=== PATIENT | female | born 1965 | race Hispanic/Latino ===

== ENCOUNTER → 2021-09-23 | Outpatient (CLI) | payer OTHER ==
[~2021-09-23] MED LIST: AEC81 PO; ATOR20TA65 PO; ATOR40TA69 PO; BUPR-317 PO; BUPR-49 PO; CYAN-52 PO; FURO20TA4 PO; INSU100I21 SQ; INSU100I32 SQ; METO25 PO; OMEP40CA21 PO; POTA10CA44 PO; SEMA3TAB4 PO; VENL225T3 PO; VENL75CA97 PO
== END | disposition home or self-care (01) ==
LOC: RAH 12:04
PROVIDERS: ATTEND Internal Medicine
DX: Z12.31 Encounter for screening mammogram for malignant neoplasm of breast (principal)
CPT/HCPCS: 77067

== ENCOUNTER 2022-05-29 01:39 | Emergency (ER) | payer BC ==
[~2022-05-29] VITALS: Ht 162.6 cm; Wt 94.5 kg
[~2022-05-29 01:39] MED LIST changes: +ACET-66 PO; -INSU100I21 SQ; +INSU100I22 SQ; -POTA10CA44 PO; +POTA10CA45 PO
[2022-05-29 02:01] LABS: BASOPHILS % (AUTO) 0.6 % (0.0-5.0); EOSINOPHILS % (AUTO) 1.1 % (0.0-8.0); HEMATOCRIT 48.2 % (36-48); LYMPHOCYTES % (AUTO) 30.6 % (21.0-51.0); MEAN CORPUSCULAR HEMOGLOBIN 28.1 pg (27.0-33.0); MEAN CORPUSCULAR HGB CONC 32.4 g/dL (32.0-36.0); MEAN CORPUSCULAR VOLUME 86.8 fL (79-99); MONOCYTES % (AUTO) 8.9 % (3.0-13.0); NEUTROPHILS % (AUTO) 58.6 % (40.0-77.0); PLATELET COUNT (AUTO) 328 K/uL (130-400); RED BLOOD CELL COUNT(AUTO) 5.55 MIL/uL (4.00-5.50); RED CELL DISTRIBUTION WIDTH 14.9 % (11.0-15.5); WHITE BLOOD COUNT (AUTO) 10.5 K/uL (4.8-10.8)
[2022-05-29 02:14] LABS: INR 0.93 (0.85-1.15); PROTHROMBIN TIME 9.8 SEC (9.6-11.6)
[2022-05-29 02:15] LABS: PARTIAL THROMBOPLASTIN TIME 26.8 SEC (26.3-35.5)
[2022-05-29 02:28] LABS: ALBUMIN 3.9 g/dL (3.5-5.0); CREATININE 1.1 mg/dL (0.5-1.5); POTASSIUM 4.2 mmol/L (3.5-5.1); TOTAL PROTEIN, SERUM 7.8 g/dL (6.0-8.3)
[2022-05-29] MEDS ORDERED: HYDROCODONE/ACETAMINOPHEN 5/325 MG TAB PO ONE (03:00)
[2022-05-29 04:38] VITALS: BP 144/75
== END 2022-05-29 05:38 | disposition home or self-care (01) ==
LOC: EDH 01:39
DX: M94.0 Chondrocostal junction syndrome [Tietze] (principal); F41.9 Anxiety disorder, unspecified; I10 Essential (primary) hypertension; E11.65 Type 2 diabetes mellitus with hyperglycemia; I25.2 Old myocardial infarction; F17.200 Nicotine dependence, unspecified, uncomplicated; Z79.82 Long term (current) use of aspirin; Z79.899 Other long term (current) drug therapy; Z95.1 Presence of aortocoronary bypass graft
CPT/HCPCS: 36415; 71045; 80053; 83690; 84484; 85025; 85610; 85730; 93005

== ENCOUNTER 2023-07-21 22:13 | Emergency (ER) | payer BC ==
[~2023-07-21] VITALS: Ht 162.6 cm; Wt 90.7 kg
[~2023-07-21 22:13] MED LIST changes: -BUPR-317 PO; +BUPR-561 PO; -POTA10CA45 PO; +POTA10CA95 PO
[2023-07-21 22:46] LABS: BASOPHILS # (AUTO) 0.05 K/uL (0.00-0.20); BASOPHILS % (AUTO) 0.5 % (0.0-5.0); EOSINOPHILS % (AUTO) 0.9 % (0.0-8.0); HEMATOCRIT 39.9 % (36-48); IMMATURE GRANULOCYTE ABSOLUTE 0.03 K/uL (0-1); LYMPHOCYTES % (AUTO) 27.9 % (21.0-51.0); MEAN CORPUSCULAR HEMOGLOBIN 29.8 pg (27.0-33.0); MEAN CORPUSCULAR HGB CONC 33.8 g/dL (32.0-36.0); MEAN CORPUSCULAR VOLUME 88.1 fL (79-99); MONOCYTES # (AUTO) 0.9 K/uL (0.1-1.0); MONOCYTES % (AUTO) 8.3 % (3.0-13.0); NEUTROPHILS # (AUTO) 6.6 K/uL (1.8-7.7); NEUTROPHILS % (AUTO) 62.1 % (40.0-77.0); PLATELET COUNT (AUTO) 320 K/uL (130-400); RED BLOOD CELL COUNT(AUTO) 4.53 MIL/uL (4.00-5.50); RED CELL DISTRIBUTION WIDTH 13.3 % (11.0-15.5); WHITE BLOOD COUNT (AUTO) 10.7 K/uL (4.8-10.8)
[2023-07-21 22:55] LABS: CREATININE 0.9 mg/dL (0.5-1.0); POTASSIUM 4.1 mmol/L (3.5-5.1)
[2023-07-21] MEDS: PANTOPRAZOLE 40 MG/VIAL IVP ONE (23:38)
[2023-07-22 00:30] VITALS: BP 126/80; PULSE 66; RESP 20; O2SAT 96
[2023-07-22 00:40] LABS: APPEARANCE,URINE CLEAR (CLEAR); BILIRUBIN,URINE NEGATIVE (NEGATIVE); COLOR,URINE COLORLESS (YELLOW); GLUCOSE, URINE (UA) NEGATIVE (NEGATIVE); KETONES,URINE NEGATIVE (NEGATIVE); LEUKOCYTE ESTERASE ,URINE 250 Leu/uL (NEGATIVE); NITRATE,URINE NEGATIVE (NEGATIVE); OCCULT BLOOD,URINE NEGATIVE (NEGATIVE); PROTEIN,URINE NEGATIVE (NEGATIVE); UROBILINOGEN,URINE 0.2 mg/dL (0.2-1.0)
[2023-07-22] MEDS: MAG/ALUM/SIMETH 30 ML UDCUP ONE (00:40)
[2023-07-22] MEDS: LIDOCAINE HCL 2% VISCOUS 15 ML UDCUP ONE (00:40)
[2023-07-22] MEDS: DICYCLOMINE HCL 10 MG/5 ML ML PO ONE (00:40)
[2023-07-22 00:44] LABS: ADD UA MICROSCOPIC YES
[2023-07-22 00:46] LABS: BACTERIA,URINE FEW /HPF (None Seen); MUCUS,URINE RARE LPF (None Seen); SQUAMOUS EPITHELIAL CELL,UR RARE /HPF (0-2)
[2023-07-22] MEDS ORDERED: PANT40TA55 PO (00:56)
== END 2023-07-22 01:04 ==
LOC: EDH 22:13
DX: K21.9 Gastro-esophageal reflux disease without esophagitis (principal); F41.9 Anxiety disorder, unspecified; F32.A Depression, unspecified; E11.9 Type 2 diabetes mellitus without complications; I10 Essential (primary) hypertension; F17.200 Nicotine dependence, unspecified, uncomplicated; Z79.82 Long term (current) use of aspirin; Z79.899 Other long term (current) drug therapy; Z95.1 Presence of aortocoronary bypass graft
CPT/HCPCS: 99284; 96374; 71045; 84484 ×2; 80048; 85025; 85730; 87088; 81001; 36415; 93005; C9113

== ENCOUNTER 2023-11-25 19:00 | Emergency (ER) | payer BC ==
[~2023-11-25] VITALS: Ht 167.6 cm; Wt 92.5 kg
[~2023-11-25 19:00] MED LIST changes: +PANT40TA55 PO
[2023-11-25 19:08] VITALS: TEMP 97.9
[2023-11-25 19:42] LABS: BASOPHILS # (AUTO) 0.04 K/uL (0.00-0.20); BASOPHILS % (AUTO) 0.4 % (0.0-5.0); EOSINOPHILS # (AUTO) 0.12 K/uL (0.00-0.70); EOSINOPHILS % (AUTO) 1.2 % (0.0-8.0); HEMATOCRIT 39.8 % (36-48); IMMATURE GRANULOCYTE ABSOLUTE 0.02 K/uL (0-1); LYMPHOCYTES # (AUTO) 2.2 K/uL (1.0-4.8); LYMPHOCYTES % (AUTO) 22.8 % (21.0-51.0); MEAN CORPUSCULAR HEMOGLOBIN 29.8 pg (27.0-33.0); MEAN CORPUSCULAR HGB CONC 33.4 g/dL (32.0-36.0); MONOCYTES # (AUTO) 0.6 K/uL (0.1-1.0); MONOCYTES % (AUTO) 6.6 % (3.0-13.0); NEUTROPHILS # (AUTO) 6.7 K/uL (1.8-7.7); NEUTROPHILS % (AUTO) 68.8 % (40.0-77.0); PLATELET COUNT (AUTO) 318 K/uL (130-400); RED BLOOD CELL COUNT(AUTO) 4.47 MIL/uL (4.00-5.50); RED CELL DISTRIBUTION WIDTH 13.4 % (11.0-15.5); WHITE BLOOD COUNT (AUTO) 9.7 K/uL (4.8-10.8)
[2023-11-25 19:56] LABS: CREATININE 1.1 mg/dL (0.5-1.0)
[2023-11-25 20:51] VITALS: BP 107/67; PULSE 80; RESP 18; O2SAT 97
[2023-11-25] MEDS: ketOROlac 15MG/ML VIAL (15MG/ML) IV ONE (21:02)
[2023-11-25] MEDS ORDERED: ACET-2079 PO (21:03)
== END 2023-11-25 21:12 | disposition home or self-care (01) ==
LOC: EDH 19:00
DX: R22.2 Localized swelling, mass and lump, trunk (principal); F41.9 Anxiety disorder, unspecified; E11.9 Type 2 diabetes mellitus without complications; F17.200 Nicotine dependence, unspecified, uncomplicated; F32.A Depression, unspecified; I10 Essential (primary) hypertension; K21.9 Gastro-esophageal reflux disease without esophagitis; Z79.82 Long term (current) use of aspirin; Z79.899 Other long term (current) drug therapy; Z95.1 Presence of aortocoronary bypass graft
CPT/HCPCS: 99284; 96374; 80048; 85025; 36415; 76604; J1885

== ENCOUNTER 2024-06-09 18:09 | Emergency (ER) | payer OTHER, BC ==
[~2024-06-09] VITALS: Ht 162.6 cm; Wt 90.7 kg
[~2024-06-09 18:09] MED LIST changes: +ACET-2079 PO; -BUPR-561 PO; +BUPR-721 PO
--- NOTE | 2024-06-09 18:32 | EKG ---
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
[2024-06-09] MEDS: FAMOTIDINE 20MG VIAL IV ONE (18:37)
[2024-06-09] MEDS: 0.9%NACL 1000ML 1,000 ML IV SCH (18:37)
[2024-06-09] MEDS: ondanSETRON 4MG INJ IVP ONE (18:37)
[2024-06-09 18:38] LABS: BASOPHILS # (AUTO) 0.02 K/uL (0.00-0.20); BASOPHILS % (AUTO) 0.1 % (0.0-5.0); EOSINOPHILS # (AUTO) 0.02 K/uL (0.00-0.70); EOSINOPHILS % (AUTO) 0.1 % (0.0-8.0); HEMATOCRIT 49.8 % (36-48); IMMATURE GRANULOCYTE ABSOLUTE 0.05 K/uL (0-1); LYMPHOCYTES # (AUTO) 1.4 K/uL (1.0-4.8); LYMPHOCYTES % (AUTO) 9.3 % (21.0-51.0); MEAN CORPUSCULAR HEMOGLOBIN 29.8 pg (27.0-33.0); MEAN CORPUSCULAR HGB CONC 32.3 g/dL (32.0-36.0); MEAN CORPUSCULAR VOLUME 92.1 fL (79-99); MONOCYTES % (AUTO) 6.9 % (3.0-13.0); NEUTROPHILS # (AUTO) 12.5 K/uL (1.8-7.7); NEUTROPHILS % (AUTO) 83.3 % (40.0-77.0); PLATELET COUNT (AUTO) 315 K/uL (130-400); RED BLOOD CELL COUNT(AUTO) 5.41 MIL/uL (4.00-5.50); RED CELL DISTRIBUTION WIDTH 13.3 % (11.0-15.5)
[2024-06-09 18:49] LABS: CREATININE 1.1 mg/dL (0.5-1.0); POTASSIUM 4.1 mmol/L (3.5-5.1)
[2024-06-09 18:54] LABS: ALBUMIN 4.3 g/dL (3.5-5.0); BILIRUBIN,DIRECT 0.2 mg/dL (0.0-0.3); TOTAL PROTEIN, SERUM 8.5 g/dL (6.0-8.3)
[2024-06-09] MEDS ORDERED: IOHEXOL-350 75 ML VIAL IV ONE (19:51)
--- NOTE | 2024-06-09 20:22 | HMCIMG ---
CT ABDOMEN/PELVIS W/CONTRAST HISTORY: Epigastric pain COMPARISON: 10/31/2012 TECHNIQUE: Multiple sequential axial images of the abdomen and pelvis were obtained from the dome of the diaphragm through symphysis pubis. Patient was given 75 cc of Omnipaque through intravenous route. Oral contrast was not given. FINDINGS: No pleural effusion is seen bilaterally. Mild bilateral pulmonary infiltrates are seen. Degenerative changes of the thoracolumbar spine are present. The heart is not enlarged. Coronary arterial calcifications are seen. Post sternotomy changes are seen. Liver is enlarged measuring 26 cm. The liver, spleen, adrenal glands and pancreas are unremarkable. There is no evidence of hydronephrosis bilaterally. No evidence of renal stone is seen. Fecal material is seen in the colon. There are normal size retroperitoneal and mesenteric lymph nodes. No ascites is seen. Mild small bowel dilatation is seen with fluid-filled may be related to enterocolitis. There is mild diverticulosis. Appendix is not well seen within the evaluation. Pelvic sidewalls are symmetric bilaterally. Bladder is well distended without wall thickening. IMPRESSION: 1. Mild small bowel dilatation is seen with fluid-filled may be related to enterocolitis. There is mild diverticulosis. Appendix is not well seen within the evaluation. CT was performed with one or more following dose reduction techniques: automated exposure control, adjustment of the mA and kv according to patient's size, or use of a iterative reconstruction technique.
--- NOTE | 2024-06-09 21:08 | ERN ---
General Chief Complaint: Nausea,Vomiting,Diarrhea Stated Complaint: VOMITING Time Seen by MD: 18:24 Time Seen by Midlevel: 18:24 Source: patient History of Present Illness Initial Comments The patient is a 58-year-old female with a past medical history of type 2 diabetes presenting to the emergency department for evaluation of midepigastric abdominal pain and associated nausea and vomiting. Patient states she has been previously taking Ozempic however she had not taken it for two months. This week she restarted her Ozempic but was started on the previous dose she was on which was 2 mg. She believes it may have been the high dose causing your symptoms. Allergies: Coded Allergies: No Known Drug Allergies (Unverified Allergy, Unknown, 09/19/20) Home Meds Active Scripts Acetaminophen with Codeine (Acetaminophen-Cod #3 Tablet) 300 Mg-30 Mg Tablet, 1 TAB PO BID for 5 Days, #10 TAB Prov:SHASTA LITTLE 11/25/23 Pantoprazole Sodium (Protonix) 40 Mg Ectab, 40 MG PO DAILY for 30 Days, #30 TAB.EC Prov:ANDI JACOBS MD 07/22/23 Acetaminophen (Tylenol) 500 Mg Tab, 500 MG PO Q4PRN PRN for PAIN, #15 TAB Prov:ONUR VICENTE 03/14/22 Potassium Chloride (Potassium Chloride) 10 Meq Capsule.er, 10 MEQ PO DAILY, #7 CAP 0 Refills Prov:KIARA DE LEON HEAD OF DESIGN 09/26/20 Furosemide (Furosemide) 20 Mg Tablet, 20 MG PO DAILY, #7 TAB 0 Refills Prov:KIARA DE LEONP 09/26/20 Metoprolol Tartrate (Lopressor) 25 Mg Tab, 25 MG PO BID, #60 TAB 3 Refills Prov:KIARA DE LEONP 09/26/20 Atorvastatin Calcium (LIPITOR) 40 Mg Tablet, 40 MG PO HS, #90 TAB 3 Refills Prov:KIARA DE LEONP 09/26/20 Aspirin (ASPIRIN 81 MG ECTAB) 81 Mg Ectab, 81 MG PO DAILY, #90 TAB.EC 3 Refills Prov:KIARA DE LEONP 09/26/20 Reported Medications Insulin Aspart (Niacinamide) (Fiasp 100 Unit/ml Flextouch) 100 Unit/1 Ml Insuln.pen, SQ AD, SYRINGE 02/12/21 Cyanocobalamin (Vitamin B-12) (Vitamin B-12) 1,000 Mcg Tablet, 1000 MCG PO DAILY, TAB 02/12/21 Venlafaxine HCl (Venlafaxine HCl ER) 75 Mg Cap.er.24h, 75 MG PO DAILY, CAPSULE.DR 02/12/21 Atorvastatin Calcium (Atorvastatin Calcium) 20 Mg Tablet, 20 MG PO DAILY, TAB 02/12/21 Omeprazole (Omeprazole) 40 Mg Capsule.dr, 40 MG PO DAILY, CAP 02/12/21 Bupropion HCl (Bupropion Xl) 150 Mg Tab.er.24h, 150 MG PO DAILY, TAB 02/12/21 Semaglutide (Rybelsus) 3 Mg Tablet, 1 TAB PO ACBKFST 09/19/20 Omeprazole (Omeprazole) 40 Mg Capsule.dr, 1 CAP PO QDP 09/19/20 Insulin Detemir (Levemir Flextouch) 100 Unit/1 Ml Insuln.pen, 55 UNITS SQ HS 09/19/20 Bupropion HCl (Bupropion Xl) 300 Mg Tab.er.24h, 1 TAB PO QDP 09/19/20 Venlafaxine HCl (Venlafaxine HCl ER) 225 Mg Tab.er.24, 1 TAB PO QDP 09/19/20 Past Medical History Past Medical History: Diabetes-Type II, Hypertension, [place] Past Surgical History: CABG Surgical History Other: HEART CATH, RT HAND Social History Social History: Smokers ROS Dictation CONSTITUTIONAL: Negative except for HPI HEAD/FACE: Negative except for HPI EENT: Negative except for HPI RESPIRATORY: Negative except for HPI GASTROINTESTINAL/ABDOMINAL: Negative except for HPI GENITOURINARY: Negative except for HPI MUSCULOSKELETAL: Negative except for HPI INTEGUMENTARY: Negative except for HPI NEUROLOGICAL/PSYCH: Negative except for HPI HEMATOLOGIC/LYMPHATIC: Negative except for HPI All Systems Negative, Except as noted above. 13 point review of systems assessed and all negative except for above. Physical Exam Physical Exam Dictation Vital Signs reviewed General Appearance: Alert, oriented x 3, no acute distress, well developed, nourished. Head and Face: non-traumatic. Eyes: PERRL, pink conjunctivas, eyelid no trauma, anterior chamber with arcus senilis. Ears: Pinnas intact and no signs of trauma or erythema ear canals clear and no discharge TM no erythema Nose: No discharge, no bleeding. Oropharynx: Mouth normal, tongue pink, pharynx clear,no erythema, tonsils no exudates, no abscesses noted, mucous membrane moist Neck: Supple, non-tender, no thyromegaly, no masses, no JVD, no bruits Breast:Deferred Chest:No tenderness, no crepitus, no paradoxical movement, no retractions Lungs:Clear, well-ventilated, symmetric, no rales, no wheezing, no rhonchi, no stridor, good breath sounds bilaterally Heart: Regular rate, regular rhythm, no murmur, no gallops Vascular: no peripheral edema, Abdomen: Soft, positive bowel sounds, nondistended, no guarding, nontender, no rebound, no masses no hepatomegaly, no splenomegaly, no Oneal's sign, no hernias. Rectal: Deferred Genital: Deferred Neurological: Normal speech, motor function intact, sensory function intact Musculoskeletal: Neck nontender, full range of motion, back nontender, full range of motion, Extremities: nontender, full range of motion Skin: Color pink, dry, no turgor, no rash, no lacerations, no abrasions, no contusions. Lymphatic: Deferred Results Laboratory and Microbiology Lab and Micro Result Laboratory Tests Test 06/09/24 18:27 White Blood Count 15.0 K/uL (4.8-10.8) H Red Blood Count 5.41 MIL/uL (4.00-5.50) Hemoglobin 16.1 g/dL (12.0-16.0) H Hematocrit 49.8 % (36-48) H Mean Corpuscular Volume 92.1 fL (79-99) Mean Corpuscular Hemoglobin 29.8 pg (27.0-33.0) Mean Corpuscular Hemoglobin Concent 32.3 g/dL (32.0-36.0) Red Cell Distribution Width 13.3 % (11.0-15.5) Platelet Count 315 K/uL (130-400) Mean Platelet Volume 10.5 fL (7.5-10.5) Immature Granulocyte % (Auto) 0.3 % (0-1) Neutrophils (%) (Auto) 83.3 % (40.0-77.0) H Lymphocytes (%) (Auto) 9.3 % (21.0-51.0) L Monocytes (%) (Auto) 6.9 % (3.0-13.0) Eosinophils (%) (Auto) 0.1 % (0.0-8.0) Basophils (%) (Auto) 0.1 % (0.0-5.0) Neutrophils # (Auto) 12.5 K/uL (1.8-7.7) H Lymphocytes # (Auto) 1.4 K/uL (1.0-4.8) Monocytes # (Auto) 1.0 K/uL (0.1-1.0) Eosinophils # (Auto) 0.02 K/uL (0.00-0.70) Basophils # (Auto) 0.02 K/uL (0.00-0.20) Absolute Immature Granulocyte (auto 0.05 K/uL (0-1) Nucleated Red Blood Cells 0.0 % (0.0-0.19) White Cell Morphology Comment See comments Sodium Level 139 mmol/L (136-145) Potassium Level 4.1 mmol/L (3.5-5.1) Chloride Level 98 mmol/L (101-111) L Carbon Dioxide Level 33 mmol/L (21-32) H Blood Urea Nitrogen 21 mg/dL (7-18) H Creatinine 1.1 mg/dL (0.5-1.0) H Glomerular Filtration Rate Calc 59 mL/min (>90) Random Glucose 184 mg/dL (70-105) H Total Calcium 9.7 mg/dL (8.5-10.1) Total Bilirubin 1.0 mg/dL (0.2-1.0) Direct Bilirubin 0.2 mg/dL (0.0-0.3) Aspartate Amino Transf (AST/SGOT) 25 U/L (10-37) Alanine Aminotransferase (ALT/SGPT) 40 U/L (12-78) Alkaline Phosphatase 84 U/L (50-136) Total Creatine Kinase 106 U/L (21-232) # Troponin I High Sensitivity 7.3 ng/L (4-50) Total Protein 8.5 g/dL (6.0-8.3) H Albumin 4.3 g/dL (3.5-5.0) Lipase 26 U/L (16-77) Labs Reviewed?: Yes MDM MDM: Differential diagnosis: There are no social concerns with this patient. Prescription drug management Prescriptions will include: Medical management and examination interpretation discussions were had by me with other qualified healthcare professionals as indicated for the patient's care. ED Course Orders Procedure Category Date Status Time Initiate Chest Pain MANNY 06/09/24 In Process Procotol 18:18 12 Lead Ekg Tracing- EKG 06/09/24 Complete Technical 18:18 Cardiac Panel LAB 06/09/24 Complete 18:18 Cbc With Differential LAB 06/09/24 Complete 18:28 Basic Metabolic Panel LAB 06/09/24 Complete 18:28 Lipase LAB 06/09/24 Complete 18:28 Hepatic Function Panel LAB 06/09/24 Complete 18:28 Ondansetron 4mg Inj PHA 06/09/24 Complete (Zofran 4mg Inj) 18:30 Famotidine 20mg Vial PHA 06/09/24 Complete (Pepcid 20mg Vial) 18:30 0.9%Nacl 1000ml (Ns PHA 06/09/24 In Process 1000ml) 18:30 Ct Abdomen/Pelvis CT 06/09/24 Resulted W/Contrast 19:14 Iohexol (Omnipaque) PHA 06/09/24 Complete 19:51 Current Medications Medications (Trade) Dose Ordered Sig/Deepika Route PRN Reason Start Time Stop Time Status Last Admin Dose Admin Famotidine (Pepcid 20mg Vial) 20 mg ONCE ONCE IV 06/09/24 18:30 06/09/24 18:31 DC 06/09/24 18:37 Iohexol (Omnipaque) 75 ml STK-MED ONCE IV 06/09/24 19:51 06/09/24 19:51 DC Ondansetron HCl (zoFRAN 4MG INJ) 4 mg ONCE ONCE IVP 06/09/24 18:30 06/09/24 18:31 DC 06/09/24 18:37 Sodium Chloride 1,000 ml @ 0 mls/hr Q0M IV 06/09/24 18:30 07/09/24 18:29 06/09/24 18:37 Vital Signs Date Time Temp Pulse Resp B/P (MAP) Pulse Ox O2 Delivery O2 Flow Rate FiO2 06/09/24 20:28 98.1 80 18 137/79 98 Room Air* 0 21 06/09/24 18:31 98.8 84 20 144/71 98 Room Air* 0 21 06/09/24 18:13 98.2 92 18 167/101 96 Room Air 0 DX & DISP Disposition: Discharge Departure Impression: Primary Impression: Medication side effect Additional Impression: Enterocolitis Condition: Stable Additional Instructions: Your symptoms are most likely related to the high dose of Ozempic you administered. Your blood work shows an elevation in your white blood cell count. Your CT scan of the abdomen/pelvis reveals enterocolitis. Have given you a prescription for Zofran and Pepcid which should help improve your symptoms over the next couple of days. If you develop any fever, chills, or any other symptom please report to the ER for further evaluation Referrals: STEF JACKSON MD (PCP) Time of Disposition: 21:06 I have reviewed the case, and I agree with, Diagnosis and Plan I performed the substantive portion of the visit. I have reviewed and personally made and approve the management plan that is documented in the note by myself or the [facility]. I acknowledge for responsibility for the patient's management plan. SHASTA LITTLE Jun 09, 2024 21:08
[2024-06-09 21:23] VITALS: BP 131/72; PULSE 78; RESP 20; TEMP 98; O2SAT 98
== END 2024-06-09 21:23 | disposition home or self-care (01) ==
LOC: EDH 18:09
DX: K52.1 Toxic gastroenteritis and colitis (principal); T50.995A Adverse effect of other drugs, medicaments and biological substances, initial encounter; Y92.89 Other specified places as the place of occurrence of the external cause; E11.9 Type 2 diabetes mellitus without complications; F17.200 Nicotine dependence, unspecified, uncomplicated; I10 Essential (primary) hypertension; Z79.82 Long term (current) use of aspirin; Z79.85 Long-term (current) use of injectable non-insulin antidiabetic drugs; Z79.899 Other long term (current) drug therapy; Z95.1 Presence of aortocoronary bypass graft
CPT/HCPCS: 99285; 74177; 96374; 96375; 82550; 80076; 84484; 80048; 83690; 85025; 36415; 93005; J3490; J7030; J2405; Q9967

== ENCOUNTER 2024-11-15 16:12 | Emergency (ER) | payer OTHER, MEDICARE ==
[~2024-11-15] VITALS: Ht 162.6 cm; Wt 93.0 kg
--- NOTE | 2024-11-15 16:24 | ERN ---
ED Note History of Present Illness Stated Complaint: LAC LT THUMB Chief Complaint: Laceration/Avulsion Time Seen by MD: 16:15 Dictation: PATIENT IS A 59-YEAR-OLD FEMALE HERE WITH A SMALL LACERATION TO THE DISTAL LEFT THUMB ONSET1 HOUR PRIOR TO ARRIVAL. SHE STATES SHE IS ON ELIQUIS AND WAS COOKING AND CUTTING SOME VEGETABLES WHEN SHE CUT HER LEFT THUMB WITH A KNIFE. SHE STATES SHE HAS HAD A DIFFICULT TIME GETTING IT TO STOP BLEEDING. HER LAST TETANUS SHOT IS UNKNOWN. NEUROVASCULAR CMS INTACT TO THUMB. ON EXAM THERE HAS CAPILLARY BLEEDING ONLY SUBTLE. IN HIS CONTINUING Allergies: Coded Allergies: No Known Drug Allergies (Unverified Allergy, Unknown, 09/19/20) Home Meds Active Scripts Acetaminophen with Codeine (Acetaminophen-Cod #3 Tablet) 300 Mg-30 Mg Tablet, 1 TAB PO BID for 5 Days, #10 TAB Prov:SHASTA LITTLE 11/25/23 Pantoprazole Sodium (Protonix) 40 Mg Ectab, 40 MG PO DAILY for 30 Days, #30 TAB.EC Prov:ANDI JACOBS MD 07/22/23 Acetaminophen (Tylenol) 500 Mg Tab, 500 MG PO Q4PRN PRN for PAIN, #15 TAB Prov:ONUR VICENTE [facility] 03/14/22 Potassium Chloride (Potassium Chloride) 10 Meq Capsule.er, 10 MEQ PO DAILY, #7 CAP 0 Refills Prov:KIARA DE LEON OYSTER SHUCKER 09/26/20 Furosemide (Furosemide) 20 Mg Tablet, 20 MG PO DAILY, #7 TAB 0 Refills Prov:KIARA DE LEON OYSTER SHUCKER 09/26/20 Metoprolol Tartrate (Lopressor) 25 Mg Tab, 25 MG PO BID, #60 TAB 3 Refills Prov:KIARA DE LEON OYSTER SHUCKER 09/26/20 Atorvastatin Calcium (LIPITOR) 40 Mg Tablet, 40 MG PO HS, #90 TAB 3 Refills Prov:KIARA DE LEONP 09/26/20 Aspirin (ASPIRIN 81 MG ECTAB) 81 Mg Ectab, 81 MG PO DAILY, #90 TAB.EC 3 Refills Prov:KIARA DE LEONP 09/26/20 Reported Medications Insulin Aspart (Niacinamide) (Fiasp 100 Unit/ml Flextouch) 100 Unit/1 Ml Insuln.pen, SQ AD, SYRINGE 02/12/21 Cyanocobalamin (Vitamin B-12) (Vitamin B-12) 1,000 Mcg Tablet, 1000 MCG PO DAILY, TAB 02/12/21 Venlafaxine HCl (Venlafaxine HCl ER) 75 Mg Cap.er.24h, 75 MG PO DAILY, CAPSULE.DR 02/12/21 Atorvastatin Calcium (Atorvastatin Calcium) 20 Mg Tablet, 20 MG PO DAILY, TAB 02/12/21 Omeprazole (Omeprazole) 40 Mg Capsule.dr, 40 MG PO DAILY, CAP 02/12/21 Bupropion HCl (Bupropion Xl) 150 Mg Tab.er.24h, 150 MG PO DAILY, TAB 02/12/21 Semaglutide (Rybelsus) 3 Mg Tablet, 1 TAB PO ACBKFST 09/19/20 Omeprazole (Omeprazole) 40 Mg Capsule.dr, 1 CAP PO QDP 09/19/20 Insulin Detemir (Levemir Flextouch) 100 Unit/1 Ml Insuln.pen, 55 UNITS SQ HS 09/19/20 Bupropion HCl (Bupropion Xl) 300 Mg Tab.er.24h, 1 TAB PO QDP 09/19/20 Venlafaxine HCl (Venlafaxine HCl ER) 225 Mg Tab.er.24, 1 TAB PO QDP 09/19/20 Past Medical History Past Medical History: Diabetes-Type II, High Cholesterol, Hypertension, [place], Other Additional Past Medical Hx: PTSD Surgical History: CABG Surgical History Other: HEART CATH, RT HAND Social History: Smokers History: Not Applicable RN Note Reviewed/Agreed w/PFSH: Yes Review of System Dictation CONSTITUTIONAL: NEGATIVE EXCEPT FOR HPI HEAD/FACE: NEGATIVE EXCEPT FOR HPI EENT: NEGATIVE EXCEPT FOR HPI RESPIRATORY: NEGATIVE EXCEPT FOR HPI GASTROINTESTINAL/ABDOMINAL: NEGATIVE EXCEPT FOR HPI GENITOURINARY: NEGATIVE EXCEPT FOR HPI MUSCULOSKELETAL: NEGATIVE EXCEPT FOR HPI LACERATION DISTAL LEFT THUMB INTEGUMENTARY: NEGATIVE EXCEPT FOR HPI NEUROLOGICAL/PSYCH: NEGATIVE EXCEPT FOR HPI HEMATOLOGIC/LYMPHATIC: NEGATIVE EXCEPT FOR HPI ALL SYSTEMS NEGATIVE, EXCEPT NOTED ABOVE. 13 POINT REVIEW OF SYSTEMS ASSESSED AND ALL NEGATIVE EXCEPT FOR ABOVE. Initial Vital Sign VS Vital Signs Date Time Temp Pulse Resp B/P (MAP) Pulse Ox O2 Delivery O2 Flow Rate FiO2 11/15/24 16:14 98.6 78 18 118/73 98 Physical Exam Dictation VITAL SIGNS REVIEWED GENERAL APPEARANCE: ALERT, ORIENTED X 3, A MILD CUTE DISTRESS, WELL DEVELOPED, NOURISHED. HEAD AND FACE: NON-TRAUMATIC. EYES: PERRL, PINK CONJUNCTIVAS, EYELID NO TRAUMA, ANTERIOR CHAMBER WITH ARCUS SENILIS. EARS: PINNAS INTACT AND NO SIGNS OF TRAUMA OR ERYTHEMA EAR CANALS CLEAR AND NO DISCHARGE TM NO ERYTHEMA NOSE: NO DISCHARGE, NO BLEEDING. OROPHARYNX: MOUTH NORMAL, TONGUE PINK, PHARYNX CLEAR,NO ERYTHEMA, TONSILS NO EXUDATES, NO ABSCESSES NOTED, MUCOUS MEMBRANE MOIST NECK: SUPPLE, NON-TENDER, NO THYROMEGALY, NO MASSES, NO JVD, NO BRUITS BREAST:DEFERRED CHEST:NO TENDERNESS, NO CREPITUS, NO PARADOXICAL MOVEMENT, NO RETRACTIONS LUNGS:CLEAR, WELL-VENTILATED, SYMMETRIC, NO RALES, NO WHEEZING, NO RHONCHI, NO STRIDOR, GOOD BREATH SOUNDS BILATERALLY HEART: REGULAR RATE, REGULAR RHYTHM, NO MURMUR, NO GALLOPS VASCULAR: NO PERIPHERAL EDEMA, ABDOMEN: SOFT, POSITIVE BOWEL SOUNDS, NONDISTENDED, NO GUARDING, NONTENDER, NO REBOUND, NO MASSES NO HEPATOMEGALY, NO SPLENOMEGALY, NO THOMAS'S SIGN, NO HERNIAS. RECTAL: DEFERRED GENITAL: DEFERRED NEUROLOGICAL: NORMAL SPEECH, MOTOR FUNCTION INTACT, SENSORY FUNCTION INTACT MUSCULOSKELETAL: NECK NONTENDER, FULL RANGE OF MOTION, BACK NONTENDER, FULL RANGE OF MOTION, EXTREMITIES: SKIN AVULSION TO DISTAL LEFT THUMB. NO REPAIR POSSIBLE PATIENT WA S MADE AWARE. MINIMAL BLEEDING SKIN: COLOR PINK, UNREPAIRABLE SKIN LACERATION TO DISTAL LEFT THUMB. NAIL IS INTACT. LYMPHATIC: DEFERRED Results (Laboratory/Radiology) Labs Reviewed?: Yes ED Course ED Course Orders Procedure Category Date Status Time Lidocaine Hcl 1% 20ml PHA 11/15/24 Complete Vial (Lidocaine Hc 16:30 Acetaminophen 500mg PHA 11/15/24 Complete Tab (Tylenol 500mg T 16:30 Neomy PHA 11/15/24 Complete Sulf/Bacitra/Polymyxin 16:30 Tetanus,Diphtheria PHA 11/15/24 Complete Tox [Adult] (Diphther 16:30 Current Medications Medications (Trade) Dose Ordered Sig/Deepika Route PRN Reason Start Time Stop Time Status Last Admin Dose Admin Acetaminophen (TYLenol 500MG TAB) 1,000 mg ONCE ONCE PO 11/15/24 16:30 11/15/24 16:31 DC Lidocaine HCl (Lidocaine HCl 1% 20ml Vial) 10 ml ONCE ONCE INJ 9/26/25 16:30 11/15/24 16:31 DC Neomycin/ Polymyxin/ Bacitracin (Triple Antibiotic Ointment) 1 appl ONCE ONCE TP 11/15/24 16:30 11/15/24 16:31 DC Tetanus/ Diphtheria Toxoids Adsorbed (DiphthERIA-teTANUS TOXOID [ADULT]/ DECAVAC) 0.5 ml ONCE ONCE IM 11/15/24 16:30 11/15/24 16:31 DC Vital Signs Date Time Temp Pulse Resp B/P (MAP) Pulse Ox O2 Delivery O2 Flow Rate FiO2 11/15/24 16:14 98.6 78 18 118/73 98 1725/SPOKE WITH PATIENT AT LENGTH REGARDING CLINICAL FINDINGS AFTER WOUND WAS CLEANED. SKIN IS AVULSED AND THERE WAS NO REPAIR POSSIBLE WE WILL APPLY QUICK CLOT PRESSURE DRESSING, PATIENT IS A DIABETIC WE WILL INITIATE KEFLEX FOR PROPHYLAXIS PATIENT WAS INSTRUCTED TO LEAVE DRESSING ON UNTIL TOMORROW. Medical Decision Making [facility] 1725/MEDICAL DECISION-MAKING BASED ON TETANUS UPDATE AND WOUND EXAMINATION SKIN IS AVULSED TO DISTAL LEFT THUMB NO REPAIR POSSIBLE PATIENT WAS ADVICE. WE WILL APPLY PRESSURE DRESSING WITH QUICK CLOT PATIENT MADE AWARE TO DO NOT REMOVE DRESSING UNTIL THE NEXT DAY. KEFLEX WE WILL BE GIVEN DX & DISP Disposition: Discharge Departure Impression: Primary Impression: Avulsion of skin of left thumb Condition: Stable Scripts Ibuprofen (Ibuprofen 800 mg Tab) 800 Mg Tab 800 MG PO Q8H PRN for fever or pain, #30 TAB 0 Refills Prov: JAZ HARDY NP 11/15/24 Mupirocin (Bactroban 2% Oint) 2 % Oint 1 APPL TP TID for 5 Days, #15 GM 0 Refills apply to affected area(s) Prov: JAZ HARDY NP 11/15/24 Cephalexin (Cephalexin) 500 Mg Tablet 1 TAB PO TID for 10 Days, #30 TAB 0 Refills Prov: JAZ HARDY NP 11/15/24 Additional Instructions: FOLLOW-UP WITH PRIMARY CARE PROVIDER IN 1 TO 2 DAYS. TAKE MEDICATIONS DIRECTED HERE IN THE EMERGENCY ROOM. OKAY TO CONTINUE HOME MEDICATIONS UNLESS OTHERWISE DISCUSSED DURING YOUR VISIT IN THE EMERGENCY ROOM TODAY. RETURN TO YOUR NEAREST EMERGENCY ROOM IF SYMPTOMS WORSEN OR IF THERE IS NO IMPROVEMENT. CALL 911 IF YOU NEED IMMEDIATE ASSISTANCE. TAKE TYLENOL OR MOTRIN [id number] NEEDED AND IF NO CONTRAINDICATIONS ARE PRESENT. INCREASE ORAL HYDRATION. A WOUND CULTURE OR URINE CULTURE WAS ORDERED HERE IN THE EMERGENCY ROOM DEPARTMENT PLEASE FOLLOW-UP WITH PRIMARY CARE PROVIDER AND ADVISE THEM TO GET REPEAT PORTS FROM OUR FACILITY. IF YOU HAD ANY FLAKITO WRAP/SPLINTS THAT WERE APPLIED HERE, PLEASE DO NOT REMOVE THEM UNTIL YOU SEE YOUR PRIMARY CARE OR SPECIALTY. KEEP DRESSING TO LEFT HAND CLEAN AND DRY. DO NOT REMOVE DRESSING UNTIL MONDAY. APPLY BACTROBAN OINTMENT3 TIMES A DAY FOR FIVE DAYS WITH NONADHESIVE DRESSING TO WOUND. SEE YOUR PRIMARY CARE DOCTOR MONDAY WITHOUT FAIL FOR FOLLOW UP AND MANAGEMENT Referrals: STEF JACKSON MD (PCP) Time of Disposition: 17:28 I have reviewed the case, and I agree with, Diagnosis and Plan JAZ HARDY NP Nov 15, 2024 16:24
[2024-11-15] MEDS ORDERED: MUPI22O TP (17:29)
[2024-11-15] MEDS ORDERED: IBUP-2077 PO (17:29)
[2024-11-15] MEDS ORDERED: CEPH500T PO (17:29)
[2024-11-15 18:02] VITALS: BP 121/70; PULSE 72; RESP 18; TEMP 98.6; O2SAT 98
[2024-11-15] MEDS: LIDOCAINE HCL 1% 20 ML VIAL INJ ONE (18:08)
--- NOTE | 2024-11-15 18:24 | NUR ---
WOUND CARE TO LT THUMB WITH SHUR CLEANSE AND APPLIED QUICK CLOT AND DRESSED WITH SMALL KERLIX AND TAPE, PT TOLERATED WELL.
[2024-11-15] MEDS: NEOMY SULF/BACITRA/POLYMYXIN B 1 EACH PACKET TP ONE (18:25)
== END 2024-11-15 18:33 | disposition home or self-care (01) ==
LOC: EDH 16:12
DX: S61.012A Laceration without foreign body of left thumb without damage to nail, initial encounter (principal); E11.9 Type 2 diabetes mellitus without complications; E78.00 Pure hypercholesterolemia, unspecified; F17.200 Nicotine dependence, unspecified, uncomplicated; I10 Essential (primary) hypertension; Z79.82 Long term (current) use of aspirin; Z79.891 Long term (current) use of opiate analgesic; Z79.899 Other long term (current) drug therapy; Z95.1 Presence of aortocoronary bypass graft; W26.0XXA Contact with knife, initial encounter; Y93.G3 Activity, cooking and baking; Y92.89 Other specified places as the place of occurrence of the external cause; Y99.8 Other external cause status
CPT/HCPCS: 90471; 90714; 99283